=== PATIENT | female | born 1980 | race Caucasian/White ===

== ENCOUNTER 2016-12-06 04:00 | Inpatient (IN) | payer OTHER ==
[2016-12-06] MEDS ORDERED: DEXTROSE 5%-LACTATED RINGERS 500 ML IV ONE ×2 (05:00→06:00)
[2016-12-06] MEDS ORDERED: PROMETHAZINE HCL 25 MG/1 ML VIAL IVPUSH ONE (07:48)
[2016-12-06] MEDS ORDERED: BUTORPHANOL TARTRATE 1 MG/ML VIAL IVPB ONE (07:48)
[2016-12-06 08:28] VITALS: BMI 29.4
[2016-12-06 08:41] LABS: BASOPHIL 0.6 % (0-2.0); EOSINOPHIL 0.6 % (0-4.5); MCH 31.5 pg (25.7-33.7); MCHC 33.4 g/dl (32.0-36.0); MEAN CELL VOLUME 94.3 fl (80-96); MEAN PLT VOLUME 8.7 fl (7.5-11.1); NEUTROPHILS 75.1 % (42.8-82.8); PLATELET COUNT 275 K/MM3 (134-434); RDW 14.2 % (11.6-15.6); WHITE BLOOD COUNT 10.9 K/mm3 (4.0-10.0)
[2016-12-06] MEDS: FENTANYL/BUPIVACAINE/NS/PF - PCEA - 50 ML DISP.SYRIN EP SCH ×2 (08:50→23:41)
[2016-12-06 08:52] LABS: INR 0.97 (0.82-1.09); PROTHROMBIN TIME (PATIENT) 10.7 SEC (9.98-11.88)
[2016-12-06 08:55] LABS: ACTIVATED PTT 27.1 SECONDS (26.9-34.4); CALCIUM 9.2 mg/dL (8.5-10.1); CREATININE 0.6 mg/dL (0.55-1.02)
[2016-12-06] MEDS ORDERED: TUBERCULIN PPD 5 TU/0.1ML SYRINGE (IN PATIENT USE ONLY) ID ONE (09:00)
--- NOTE | 2016-12-06 09:47 | HP ---
Past Medical History - Admission Chief Complaint: Painful contractions sine 183 on 12/05/16 History of Present Illness: 36 y/o with SIUP at 40 weeks gestation presents today with painful contractions since 1829 last evening. Pt denies LOF/VB. +FM. EDC 12/06/16 by early ultrasound and IUI dating. conceived via IUI. complicated only maternal anxiety for which she was taking daily Xanax, states last dose was several weeks ago and mood has been stable. GBS negative, HIV negative. Low risk genetic screening (NIPS). History Source: Patient, Medical Record Limitations to Obtaining History: No Limitations - Past Medical History ORACLE ARCHITECT: No: Seizure, TIA, Vertigo Cardiovascular: No: AFIB, HTN, GA Pulmonary: No: Asthma, COPD Gastrointestinal: No: Ascites, Esophageal Varices, Gastritis, GERD Hepatobiliary: No: Cholelithiasis, Cholecystitis Renal/: No: Cancer, UTI Reproductive: Yes: Other (infertility - via IUI). No: Ectopic , Endometriosis, Fibroids, PID, Polycystic Ovary Syndrome ...: 5 ...Para: 0 ...Term: 0 ...: 0 ...Spon : 2 ...Induced : 2 ...Multiple Gestation: 0 ...LMP: 03/01/16 ... Weeks Gestation by Dates: 40 ...EDC by Dates: 12/06/16 Heme/Onc: No: Anemia, Bleeding Disorder, Sickle Cell Disease Infectious Disease: No: AIDS, HIV, MRSA Psych: Yes: Anxiety, Depression. No: Bipolar, Panic ENT: No: Allergic Rhinitis Endocrine: No: Diabetes Mellitus, Hyperthyroidism - Past Surgical History Hx Myomectomy: No Hx Transabdominal Cerclage: No Additional Surgical History: D&C, endometrial polypectomy - Smoking History Smoking history: Former smoker Have you smoked in the past 12 months: No Aproximately how many cigarettes per day: 10 - Alcohol/Substance Use Hx Alcohol Use: No - Social History Usual Living Arrangement: Yes: With Spouse ADL: Independent History of Recent Travel: No Home Medications - Allergies Allergies/Adverse Reactions: Allergies Allergy/AdvReac Type Severity Reaction Status Date / Time No Known Allergies Allergy Verified 12/06/16 05:51 - Home Medications Home Medications: Ambulatory Orders Alprazolam [Xanax] 0.5 mg PO PRN 12/06/16 Folic Acid 1 mg PO DAILY 12/06/16 Vit/Iron Fumarate/FA [ Tablet] 1 tab PO DAILY 12/06/16 Review of Systems - Review of Systems Constitutional: reports: No Symptoms Eyes: reports: No Symptoms HENT: reports: No Symptoms Neck: reports: No Symptoms Cardiovascular: reports: No Symptoms Respiratory: reports: No Symptoms Gastrointestinal: reports: No Symptoms Genitourinary: reports: No Symptoms Breasts: reports: No Symptoms Reported Musculoskeletal: reports: No Symptoms Integumentary: reports: No Symptoms Neurological: reports: No Symptoms Endocrine: reports: No Symptoms Hematology/Lymphatic: reports: No Symptoms Psychiatric: reports: No Symptoms Physical Exam - Maternity Vital Signs: Vital Signs Temperature 97.6 F 12/06/16 08:17 Pulse Rate 104 H 12/06/16 09:00 Respiratory Rate 20 12/06/16 09:00 Blood Pressure 130/84 12/06/16 09:00 O2 Sat by Pulse Oximetry (%) 98 12/06/16 09:00 Constitutional: Yes: Well Nourished, No Distress, Calm Eyes: Yes: Conjunctiva Clear, EOM Intact HENT: Yes: Atraumatic, Normocephalic Neck: Yes: Supple, Trachea Midline Cardiovascular: Yes: Regular Rate and Rhythm Lungs: Clear to auscultation - Abdominal Exam/OB Fundal Height: 40 Number of Fetuses: Single Presentation: Vertex Contractions: Yes Regularity: Regular Intensity: Mild/Mod Monitor Mode: External Heart Rate (range): 135 Category: I Accelerations: Uniform Decelerations: None - Vaginal Exam/OB Vaginal Bleediing: No Dilatation (cm): .35 Effacement (%): 80 Amniotic Membrane Status: Ruptured (AROM for clear fluid at this time) Presentation: Vertex/Position Station: -2 - Physical Exam Psychiatric: Yes: Alert, Oriented - Labs Lab Results: CBC, BMP 12/06/16 08:00 12/06/16 08:00 Hemorrhage Risk Assessment - Risk Factors Medium Risk Factors: Yes: None High Risk Factors: Yes: None Risk Score: 1 Risk Level: Medium Risk Problem List - Problems (1) Active labor at term Code(s): [id number] - (2) Anxiety Code(s): F41.9 - ANXIETY DISORDER, UNSPECIFIED Assessment/Plan 36 y/o with SIUP at 40.0 weeks gestation in labor, admitted to L&D - TS cat 1 - labor, admitted to L&D. Received epidural for pain control. AROM for clear fluid at this examination. Expectant management for now. Reasess in 2-3 hours , if no progress will augment with pitocin - GBS negative
[2016-12-06] MEDS: ELECTROLYTE-148 SOLN 500 ML IV SCH ×2 (10:00→16:00)
[2016-12-06] MEDS ORDERED: ELECTROLYTE-148 SOLN 500 ML IV ONE (14:45)
--- NOTE | 2016-12-06 19:42 | PN ---
Ante-Partal Exam - Subjective Subjective: pt comfortable with epidural feeling some pressure Vital Signs: Vital Signs Temperature 99.8 F H 12/06/16 19:00 Pulse Rate 84 12/06/16 19:05 Respiratory Rate 18 12/06/16 19:05 Blood Pressure 115/61 12/06/16 19:05 O2 Sat by Pulse Oximetry (%) 100 12/06/16 19:05 Bleeding: Yes Bleeding Description: Mild Headache: No Visual changes: No Right upper quadrant pain: No Pain (scale 1-10): 0 - Contractions Contractions: Yes Regularity: Regular Intensity: Mod/Strong Monitor Mode: External - Exam during Labor Heart Rate: 135 Category: I Monitor Accelerations: Present Monitor Decelerations: None Exam: Vaginal Dilatation (cm): 7 Effacement (%): 80 Amniotic Membrane Status: Ruptured Nitrazine Test: Positive Amniotic Fluid: Clear Presentation: Vertex Station: -1 - Intrapartum Hemorrhage Risk Medium Risk Factors: None High Risk Factors: None Risk Score: 0 Risk Level: Low Risk - Assessment/Plan Assessment/Plan: active labor fhts cat 1 continue to monitor gbs negative
--- NOTE | 2016-12-06 20:19 | PN ---
Ante-Partal Exam - Subjective Subjective: Pt doing well with epidural contractions Q2 Vital Signs: Vital Signs Temperature 99.8 F H 12/06/16 19:00 Pulse Rate 117 H 12/06/16 20:05 Respiratory Rate 20 12/06/16 20:05 Blood Pressure 134/78 12/06/16 20:05 O2 Sat by Pulse Oximetry (%) 100 12/06/16 20:05 Bleeding: No Headache: No Visual changes: No Right upper quadrant pain: No - Contractions Contractions: Yes Regularity: Regular Intensity: Moderate Monitor Mode: External - Exam during Labor Variability: Moderate Category: I Monitor Accelerations: Present Monitor Decelerations: None Exam: Vaginal Dilatation (cm): 8 Effacement (%): 80 Amniotic Membrane Status: Ruptured Amniotic Fluid: Clear Presentation: Vertex Station: -1 - Assessment/Plan Assessment/Plan: Active labor Cat 1 comfortable with epidural Plan Continue present management
--- NOTE | 2016-12-06 21:23 | PN ---
Progress Note (short form) - Note Progress Note: Called due to elevated temp Will draw labs blood cultures Start antibiotics Amp 2 gram urine culture EHR 160 Chorioamnionitis Cat 2 mod variability
[2016-12-06] MEDS ORDERED: ACETAMINOPHEN 1000 MG/100 ML VIAL (NON FORMULARY) IVPB ONE (21:26)
[2016-12-06] MEDS: AMPICILLIN - 2 GM in SODIUM CHLORIDE 100 ML IVPB SCH (21:32)
[2016-12-06 22:36] LABS: BASOPHIL 0.2 % (0-2.0); MCH 30.3 pg (25.7-33.7); MCHC 32.4 g/dl (32.0-36.0); MEAN CELL VOLUME 93.5 fl (80-96); MEAN PLT VOLUME 8.7 fl (7.5-11.1); NEUTROPHILS 88.9 % (42.8-82.8); PLATELET COUNT 278 K/MM3 (134-434); RDW 14.1 % (11.6-15.6); WHITE BLOOD COUNT 19.1 K/mm3 (4.0-10.0)
[2016-12-06 23:01] LABS: ALBUMIN 2.6 g/dl (3.4-5.0); ANION GAP 12 (8-16); BILIRUBIN,TOTAL 0.4 mg/dL (0.2-1.0); CALCIUM 7.8 mg/dL (8.5-10.1); CO2 21 mmol/L (21-32); CREATININE 0.6 mg/dL (0.55-1.02); GLUCOSE,RANDOM 91 mg/dL (74-106); SGOT/AST 16 U/L (15-37); SGPT/ALT 14 U/L (12-78); TOT PROT 5.6 g/dl (6.4-8.2)
[2016-12-06 23:02] LABS: ALK PHOS 143 U/L (45-117)
[2016-12-06 23:30] LABS: URINE APPEARANCE CLEAR; URINE BILIRUBIN NEGATIVE (NEGATIVE); URINE COLOR LTYELLOW; URINE GLUCOSE (UA) NEGATIVE (NEGATIVE); URINE KETONE TRACE (NEGATIVE); URINE LEUK ESTERASE NEGATIVE (NEGATIVE); URINE NITRITE NEGATIVE (NEGATIVE); URINE PROTEIN NEGATIVE (NEGATIVE); URINE UROBILINOGEN NEGATIVE E.U./dl (0.2-1.0)
[2016-12-06 23:34] LABS: URINE BLOOD 3+ (NEGATIVE)
[2016-12-06 23:36] LABS: CALCIUM OXALATE CRYSTALS RARE /hpf (NONE SEEN); URINE BACTERIA RARE /hpf (NONE SEEN); URINE MUCUS RARE; URINE RBC 48 /hpf (0-3); URINE WBC 7 /hpf (3-5)
--- NOTE | 2016-12-07 00:04 | PN ---
Ante-Partal Exam - Subjective Vital Signs: Vital Signs Temperature 99.2 F 12/06/16 23:00 Pulse Rate 93 H 12/06/16 23:35 Respiratory Rate 18 12/06/16 23:35 Blood Pressure 130/75 12/06/16 23:35 O2 Sat by Pulse Oximetry (%) 99 12/06/16 23:35 - Contractions Contractions: Yes Regularity: Regular Intensity: Moderate Monitor Mode: External - Exam during Labor Heart Rate: 165 Variability: Moderate Category: II Monitor Decelerations: None Exam: Vaginal Dilatation (cm): 9 Effacement (%): 90 Amniotic Membrane Status: Ruptured Presentation: Vertex Station: +1 - Intrapartum Hemorrhage Risk Medium Risk Factors: Chorioamniomitis Risk Score: 1 Risk Level: Medium Risk - Assessment/Plan Assessment/Plan: Cat2 active labor tachycardia Chorio/febrile abs started Epidural turned off pt is rim advised to alert when feels like pushing shoud be fully by that time continue Ampicillin wbc 19 urine culture done blood culture done
--- NOTE | 2016-12-07 01:13 | PN ---
Ante-Partal Exam - Subjective Subjective: Pt with c/o pain Vital Signs: Vital Signs Temperature 100.6 F H 12/07/16 01:00 Pulse Rate 99 H 12/07/16 00:35 Respiratory Rate 20 12/07/16 00:35 Blood Pressure 125/76 12/07/16 00:35 O2 Sat by Pulse Oximetry (%) 100 12/07/16 00:35 Bleeding: No Headache: No Visual changes: No Right upper quadrant pain: No - Contractions Contractions: Yes Regularity: Regular Intensity: Moderate Monitor Mode: External - Exam during Labor Heart Rate: 170 Variability: Moderate Category: II Monitor Accelerations: Present Monitor Decelerations: Late Exam: Vaginal Amniotic Membrane Status: Ruptured Presentation: Vertex Station: +1 - Intrapartum Hemorrhage Risk Medium Risk Factors: Chorioamniomitis Risk Score: 1 Risk Level: Medium Risk - Assessment/Plan Assessment/Plan: Failure to dilate Chorioamnionititis Cat 2 tracing Plan Primary Section
[2016-12-07] MEDS ORDERED: WITCH HAZEL 50% (TUCKS) 40 PAD/JAR PAD TP PRN (01:36)
[2016-12-07] MEDS ORDERED: METHYLERGONOVINE MALEATE 0.2 MG/1 ML AMP IM PRN (01:36)
[2016-12-07] MEDS ORDERED: diphenhydrAMINE HCL 25 MG CAPSULE (FP) PO PRN (01:36)
[2016-12-07] MEDS ORDERED: oxyCODONE HCL 5 MG TABLET PO PRN (01:36)
[2016-12-07] MEDS ORDERED: BENZOCAINE 20% 57 GM BOTTLE TP PRN (01:36)
[2016-12-07] MEDS ORDERED: ACETAMINOPHEN 325 MG TABLET (FP) PO PRN (01:36)
[2016-12-07] MEDS ORDERED: BENZOCAINE 28 GM HEMORRHOIDAL OINTMENT PR PRN (01:36)
[2016-12-07] MEDS ORDERED: morphine SULFATE/Preservative Free 0.5 MG/ML (1cc Syringe) EP ONE (03:06)
[2016-12-07] MEDS ORDERED: ONDANSETRON 4 MG/2 ML VIAL IVPB PRN (03:06)
[2016-12-07] MEDS: AMPICILLIN - 2 GM in SODIUM CHLORIDE 100 ML IVPB SCH (04:00)
[2016-12-07 04:03] LABS: ARTERIAL BLOOD GAS HCO3 22.2 meq/L (22-26)
[2016-12-07 04:04] LABS: LPM/O2% 21%; PT. ON O2? no; TYPE OF O2 room air
[2016-12-07 04:05] LABS: ARTERIAL BLD GAS O2 SATURATION 40.6 % (90-98.9); ARTERIAL BLOOD GAS PO2 21.1 mmHg (80-100)
[2016-12-07] MEDS: D5W-LR W/ 20 UNITS OXYTOCIN 1,000 ML IV SCH (04:20)
[2016-12-07] MEDS: IBUPROFEN 800 MG/8 ML IJ IVPB PRN ×2 (05:44→17:18)
--- NOTE | 2016-12-07 08:21 | OP ---
Operative Note - Note: Operative Date: 12/07/16 Pre-Operative Diagnosis: Failure to dilate. Tachycardia. Nonreassuring tracing Operation: Primary Section Findings: Live female nuchal cord x 1 Post-Operative Diagnosis: Same as Pre-op (Meconium thick) Surgeon: Dianna Jaquez Mutual Fund Manager: Amrit Yung Anesthesiologist/SEWER SEPARATION DESIGNER: Robert Louise Anesthesia: Epidural Specimens Removed: placenta Estimated Blood Loss (mls): 700 Operative Report Dictated: Yes
--- NOTE | 2016-12-07 09:33 | OP ---
DATE OF OPERATION: 12/07/2016 PREOPERATIVE DIAGNOSIS: Failure to dilate, failed tachycardia, and non- reassuring tracing. OPERATION: Primary low transverse section. POSTOPERATIVE DIAGNOSIS: Failure to dilate, failed tachycardia, and non- reassuring tracing. Live female , nuchal cord x1, and thick meconium. SURGEON: Dianna Jaquez MD MEDICAL TECHNOLOGIST BLOOD BANK: Amrit Yung MD ANESTHESIOLOGIST: ANESTHESIA: Epidural. PROCEDURE: Patient was taken to the operating room, placed in supine position, prepped and draped in the usual sterile fashion. A Pfannenstiel skin incision was made with the scalpel. Cautery was then used to go through the layers of the abdominal wall to the level of the fascia. Fascia was cut in the midline, and cautery was then used to open the fascia in smiling fashion. Irving was then used to bluntly and sharply dissect the rectus muscle off the fascia. The muscle was split in the midline. Peritoneal cavity was then entered and carried up and downwards. Bladder retractor was then placed. Vesicouterine reflection was then entered. Bladder was bluntly dissected out of the operative field. A low transverse uterine incision was made with the scalpel. Incisions were then used to open the uterus in a smiling fashion. Kochers were then used to bluntly shuck. A live female was delivered in OT position. Nuchal cord x1 was reduced. Shoulders were delivered without difficulty. Suction was performed at the table. The cord was clamped and cut, and the was handed to the migratory game bird biologist. Thick meconium was noted upon delivery. Placenta was manually extracted from the uterus. The uterus was exteriorized and cleaned with clean lap pads. Uterine incision was then closed using 0 Biosyn suture, first layer with continuous interlocking and second layer imbricating the first layer. Hemostasis was achieved. The tubes and ovaries were normal. Uterus interiorized. Abdominal cavity was cleaned with clean lap pads. Peritoneal sweep done. Peritoneum closed using 0 Biosyn suture. Fascia was closed using 0 Vicryl suture in 2 parts. Subcutaneous was closed using 0 Biosyn suture using interrupted sutures, and skin was then closed using 3-0 Vicryl in subcuticular fashion. Wounds washed and dressed. Patient tolerated the procedure well. Steri-Strips placed. Estimated blood loss was 700 mL. Wound classification clean-contaminated. Patient tolerated the procedure well and was taken to recovery room in stable condition. Rianna [id number] MTDDejuan
[2016-12-07] MEDS: CEFAZOLIN 1 GM/D5W 50 ML IVPB SCH ×2 (10:50→18:55)
--- NOTE | 2016-12-07 12:31 | PN ---
Progress Note, Physician Chief Complaint: Pt. pain controlled, no MCCOLLUM, not gotten out of bed and still has goodrich catheter. - Current Medication List Current Medications: Active Medications Acetaminophen (Tylenol -) 650 mg PO Q4H PRN PRN Reason: FEVER OR PAIN Benzocaine (Americaine Ointment -) 1 applic [place] PRN PRN PRN Reason: PAIN Benzocaine (Americaine 20% [place] -) 1 spray TP PRN PRN PRN Reason: PAIN Bisacodyl (Dulcolax Suppository -) 10 mg RC PRN PRN PRN Reason: CONSTIPATION Diphenhydramine HCl (Benadryl -) 25 mg PO Q6H PRN PRN Reason: FOR ITCHING Diphenhydramine HCl (Benadryl Injection -) 25 mg IVPUSH Q4H PRN PRN Reason: Pruritis Diphtheria/Tetanus/Acell Pertussis (Boostrix -) 0.5 ml IM .ONCE ONE Stop: 12/08/16 10:01 Hydromorphone HCl (Dilaudid -) 4 mg PO Q4H PRN PRN Reason: PAIN Stop: 12/08/16 01:35 Dextrose/Lactated Ringer's (Pitocin 20 Units In D5-Lr -) 1,000 mls @ 125 mls/ hr IV ASDIR LANI Last Admin: 12/07/16 04:20 Dose: 125 mls/hr Cefazolin Sodium (Ancef 1 Gm Premixed Ivpb -) 50 mls @ 100 mls/hr IVPB Q8H-IV LANI Stop: 12/08/16 09:59 Last Admin: 12/07/16 10:50 Dose: 100 mls/hr Ibuprofen (Motrin -) 600 mg PO Q4H PRN PRN Reason: PAIN Ibuprofen (Caldolor Injection -) 800 mg IVPB Q6H PRN PRN Reason: FEVER Stop: 12/07/16 19:37 Last Admin: 12/07/16 05:44 Dose: 800 mg Influenza Virus Vaccine (Fluvirin) 45 mcg IM .ONCE ONE Stop: 12/08/16 10:01 Methylergonovine Maleate (Methergine Injection -) 0.2 mg IM Q4H PRN PRN Reason: EXCESSIVE BLEEDING Oxycodone HCl (Roxicodone -) 5 mg PO Q4H PRN PRN Reason: PAIN LEVEL 1-5 Oxycodone HCl (Roxicodone -) 10 mg PO Q4H PRN PRN Reason: PAIN LEVEL 6-10 Senna/Docusate Sodium (Pericolace -) 2 tablet PO HS PRN PRN Reason: CONSTIPATION Simethicone (Mylicon -) 80 mg PO Q4H PRN PRN Reason: GAS Witch [place]/Glycerin (Tucks Pads -) 1 pad TP PRN PRN PRN Reason: PAIN - Objective Vital Signs: Vital Signs Temperature 98.7 F 12/07/16 09:59 Pulse Rate 92 H 12/07/16 09:59 Respiratory Rate 18 12/07/16 11:00 Blood Pressure 103/60 12/07/16 09:59 O2 Sat by Pulse Oximetry (%) 100 12/07/16 03:45 Constitutional: Yes: Well Nourished, No Distress, Calm Musculoskeletal: Yes: WNL Neurological: Yes: WNL, Alert, Oriented ...Motor Strength: WNL Labs: CBC, BMP 12/06/16 22:00 12/06/16 22:00 INR, PTT INR 0.97 (0.82-1.09) 12/06/16 08:00 Assessment/Plan POD#1 s/p . Doing well. D/C from anesthesia care after she ambulates and voids.
[2016-12-07] MEDS: SENNOSIDES/DOCUSATE COMBO (SENNA PLUS) TABLET (UD) PO PRN (21:52)
[2016-12-08] MEDS: CEFAZOLIN 1 GM/D5W 50 ML IVPB SCH (01:30)
[2016-12-08] MEDS ORDERED: BISACODYL 10 MG SUPP.RECT RC PRN (01:37)
[2016-12-08] MEDS: IBUPROFEN 600 MG TABLET (FP) PO PRN ×5 (04:23→21:50)
[2016-12-08] MEDS: oxyCODONE HCL 5 MG TABLET PO PRN ×5 (04:23→21:52)
[2016-12-08] MEDS: SIMETHICONE 80 MG TAB.CHEW (FP) PO PRN ×5 (04:23→21:50)
--- NOTE | 2016-12-08 08:49 | PN ---
Progress Note, Physician Chief Complaint: s/p section condition is stable History of Present Illness: patient is ammbulating well c/o gas pain - Current Medication List Current Medications: Active Medications Acetaminophen (Tylenol -) 650 mg PO Q4H PRN PRN Reason: FEVER OR PAIN Benzocaine (Americaine Ointment -) 1 applic [place] PRN PRN PRN Reason: PAIN Benzocaine (Americaine 20% [place] -) 1 spray TP PRN PRN PRN Reason: PAIN Bisacodyl (Dulcolax Suppository -) 10 mg RC PRN PRN PRN Reason: CONSTIPATION Diphenhydramine HCl (Benadryl -) 25 mg PO Q6H PRN PRN Reason: FOR ITCHING Diphenhydramine HCl (Benadryl Injection -) 25 mg IVPUSH Q4H PRN PRN Reason: Pruritis Diphtheria/Tetanus/Acell Pertussis (Boostrix -) 0.5 ml IM .ONCE ONE Stop: 12/08/16 10:01 Dextrose/Lactated Ringer's (Pitocin 20 Units In D5-Lr -) 1,000 mls @ 125 mls/ hr IV ASDIR LANI Last Admin: 12/07/16 04:20 Dose: 125 mls/hr Cefazolin Sodium (Ancef 1 Gm Premixed Ivpb -) 50 mls @ 100 mls/hr IVPB Q8H-IV LANI Stop: 12/08/16 09:59 Last Admin: 12/08/16 01:30 Dose: 100 mls/hr Ibuprofen (Motrin -) 600 mg PO Q4H PRN PRN Reason: PAIN Last Admin: 12/08/16 04:23 Dose: 600 mg Influenza Virus Vaccine (Fluvirin) 45 mcg IM .ONCE ONE Stop: 12/08/16 10:01 Methylergonovine Maleate (Methergine Injection -) 0.2 mg IM Q4H PRN PRN Reason: EXCESSIVE BLEEDING Oxycodone HCl (Roxicodone -) 5 mg PO Q4H PRN PRN Reason: PAIN LEVEL 1-5 Last Admin: 12/08/16 04:23 Dose: 5 mg Oxycodone HCl (Roxicodone -) 10 mg PO Q4H PRN PRN Reason: PAIN LEVEL 6-10 Senna/Docusate Sodium (Pericolace -) 2 tablet PO HS PRN PRN Reason: CONSTIPATION Last Admin: 12/07/16 21:52 Dose: 2 tablet Simethicone (Mylicon -) 80 mg PO Q4H PRN PRN Reason: GAS Last Admin: 12/08/16 04:23 Dose: 80 mg Witch [place]/Glycerin (Tucks Pads -) 1 pad TP PRN PRN PRN Reason: PAIN - Objective Vital Signs: Vital Signs Temperature 97.7 F 12/08/16 06:00 Pulse Rate 81 12/08/16 01:31 Respiratory Rate 20 12/08/16 01:58 Blood Pressure 108/58 12/08/16 01:31 O2 Sat by Pulse Oximetry (%) 100 12/07/16 03:45 Constitutional: Yes: Well Nourished, No Distress, Calm Eyes: Yes: WNL, Conjunctiva Clear HENT: Yes: WNL, Atraumatic, Normocephalic Neck: Yes: WNL, Supple Cardiovascular: Yes: WNL, Regular Rate and Rhythm Respiratory: Yes: WNL, Regular Gastrointestinal: Yes: WNL, Normal Bowel Sounds ...Rectal Exam: Yes: WNL, Deferred Genitourinary: Yes: WNL Breast(s): Yes: WNL Edema: No Peripheral Pulses WNL: Yes Integumentary: Yes: WNL Wound/Incision: Yes: Clean/Dry Neurological: Yes: Alert, Oriented ...Motor Strength: WNL Psychiatric: Yes: WNL Labs: CBC, BMP 12/06/16 22:00 12/06/16 22:00 INR, PTT INR 0.97 (0.82-1.09) 12/06/16 08:00 Assessment/Plan condition is stable continue cirrent care
[2016-12-08 09:55] LABS: MCH 31.6 pg (25.7-33.7); MCHC 33.2 g/dl (32.0-36.0); MEAN CELL VOLUME 95.4 fl (80-96); MEAN PLT VOLUME 8.1 fl (7.5-11.1); PLATELET COUNT 242 K/MM3 (134-434); RDW 14.8 % (11.6-15.6); WHITE BLOOD COUNT 20.3 K/mm3 (4.0-10.0)
[2016-12-08] MEDS ORDERED: INFLUENZA VACCINE 45 MCG/0.5 ML (MDV 16-17) IM ONE (10:00)
[2016-12-08] MEDS ORDERED: DIPHTH,PERTUSS(ACELL),TET 0.5 ML DISP.SYRIN IM ONE (11:30)
[2016-12-08] MEDS ORDERED: VACCINE 60 MCG/0.5 ML (P/F DISP.SYRIN 16-17) IM ONE (11:30)
[2016-12-08] MEDS: CEPHALEXIN MONOHYDRATE 500 MG CAPSULE (UD) PO SCH ×2 (12:28→21:50)
[2016-12-08] MEDS: SENNOSIDES/DOCUSATE COMBO (SENNA PLUS) TABLET (UD) PO PRN (21:50)
[2016-12-09] MEDS: IBUPROFEN 600 MG TABLET (FP) PO PRN ×5 (02:00→21:35)
[2016-12-09] MEDS: SIMETHICONE 80 MG TAB.CHEW (FP) PO PRN ×5 (02:00→21:35)
[2016-12-09] MEDS: oxyCODONE HCL 5 MG TABLET PO PRN ×5 (02:01→21:35)
--- NOTE | 2016-12-09 07:12 | PN ---
Post Progress Note - Subjective Subjective: Pt seen/evaluated and doing well. Pain controlled. PT OOB ambulating without difficulty. Tolerating regular diet. VB minimal. No dizziness when ambulating. Denies CP/SOB/F/C/MCCOLLUM. No other complaints. Type of Delivery: Primary C/S Vital Signs: Vital Signs Temperature 97.7 F 12/09/16 05:52 Pulse Rate 88 12/08/16 21:46 Respiratory Rate 20 12/08/16 21:46 Blood Pressure 127/75 12/08/16 21:46 O2 Sat by Pulse Oximetry (%) 100 12/07/16 03:45 Uterus: Yes: Fundus Firm, Fundus below umbilicus Incision: Yes: Sutures intact. No: Redness, Oozing Abdomen/GI: Yes: Abdomen soft, Passing flatus, Tolerating PO. No: Abdominal Distention, Tender Lochia: Yes: Rubra Lochia, amount: Small Extremities: Yes: Calves non-tender. No: Edema Perineum: Yes: Intact Activity: Ambulating - Labs Labs: CBC WBC 20.3 K/mm3 (4.0-10.0) H 12/08/16 09:00 RBC 3.74 M/mm3 (3.60-5.2) 12/08/16 09:00 Hgb 11.8 GM/dL (10.7-15.3) 12/08/16 09:00 Hct 35.7 % (32.4-45.2) 12/08/16 09:00 MCV 95.4 fl (80-96) 12/08/16 09:00 MCHC 33.2 g/dl (32.0-36.0) 12/08/16 09:00 RDW 14.8 % (11.6-15.6) 12/08/16 09:00 Plt Count 242 K/MM3 (134-434) 12/08/16 09:00 MPV 8.1 fl (7.5-11.1) 12/08/16 09:00 Neutrophils % 88.9 % (42.8-82.8) H 12/06/16 22:00 Lymphocytes % 4.5 % (8-40) L D 12/06/16 22:00 Monocytes % 6.4 % (3.8-10.2) 12/06/16 22:00 Eosinophils % 0.0 % (0-4.5) D 12/06/16 22:00 Basophils % 0.2 % (0-2.0) 12/06/16 22:00 Problem List - Problems (1) Active labor at term Code(s): [id number] - (2) Anxiety Code(s): F41.9 - ANXIETY DISORDER, UNSPECIFIED (3) delivery delivered Code(s): O82 - ENCOUNTER FOR DELIVERY WITHOUT INDICATION Assessment/Plan 36 y/o post day/post op day 2 from primary section for failure to dilate and chorioamnionitis - AFVSS - Hgb 11.8 post op - urinalysis with gram neg. bacilli noted - started on PO antibiotics yesterday , pt asymptomatic - regular diet, PO pain meds - h/o anxiety - stable, not currently on meds - routine care, plan for discharge home on 12/10 or 12/11
[2016-12-09] MEDS: CEPHALEXIN MONOHYDRATE 500 MG CAPSULE (UD) PO SCH ×2 (10:20→21:35)
[2016-12-09] MEDS: D5W-LR W/ 20 UNITS OXYTOCIN 1,000 ML IV SCH (11:43)
[2016-12-09] MEDS: SENNOSIDES/DOCUSATE COMBO (SENNA PLUS) TABLET (UD) PO PRN (21:36)
[2016-12-10] MEDS ORDERED: oxyCODONE HCL 5 MG TABLET ONE (01:50)
[2016-12-10] MEDS: oxyCODONE HCL 5 MG TABLET PO PRN ×3 (01:52→12:47)
[2016-12-10] MEDS: SIMETHICONE 80 MG TAB.CHEW (FP) PO PRN ×3 (01:52→12:46)
[2016-12-10] MEDS: IBUPROFEN 600 MG TABLET (FP) PO PRN ×3 (01:53→12:46)
[2016-12-10 06:04] LABS: MCH 31.2 pg (25.7-33.7); MCHC 33.1 g/dl (32.0-36.0); MEAN CELL VOLUME 94.4 fl (80-96); PLATELET COUNT 328 K/MM3 (134-434); RDW 14.5 % (11.6-15.6); WHITE BLOOD COUNT 9.7 K/mm3 (4.0-10.0)
[2016-12-10 07:49] VITALS: BP 123/74; PULSE 72; TEMP 98.3
--- NOTE | 2016-12-10 08:54 | PN ---
Post Progress Note - Subjective Subjective: Pt seen/evaluated and doing well. Pain controlled, tolerating diet. Ambulating , voiding, passing flatus. VB minimal. Denies CP/SOB/F/C/MCCOLLUM or any other complaints. Type of Delivery: Primary C/S Vital Signs: Vital Signs Temperature 98.3 F 12/10/16 07:47 Pulse Rate 72 12/10/16 07:47 Respiratory Rate 20 12/10/16 07:47 Blood Pressure 123/74 12/10/16 07:47 O2 Sat by Pulse Oximetry (%) 100 12/07/16 03:45 Uterus: Yes: Fundus Firm, Fundus below umbilicus Incision: Yes: Sutures intact Abdomen/GI: Yes: Abdomen soft, Passing flatus, Tolerating PO. No: Abdominal Distention, Tender Lochia, amount: Small Extremities: Yes: Calves non-tender, Edema (trace LE edema b/l, nonpitting) Perineum: Yes: Intact Activity: Ambulating - Labs Labs: CBC WBC 9.7 K/mm3 (4.0-10.0) D 12/10/16 05:35 RBC 3.35 M/mm3 (3.60-5.2) L 12/10/16 05:35 Hgb 10.5 GM/dL (10.7-15.3) L D 12/10/16 05:35 Hct 31.7 % (32.4-45.2) L 12/10/16 05:35 MCV 94.4 fl (80-96) 12/10/16 05:35 MCHC 33.1 g/dl (32.0-36.0) 12/10/16 05:35 RDW 14.5 % (11.6-15.6) 12/10/16 05:35 Plt Count 328 K/MM3 (134-434) D 12/10/16 05:35 MPV 8.0 fl (7.5-11.1) 12/10/16 05:35 Neutrophils % 88.9 % (42.8-82.8) H 12/06/16 22:00 Lymphocytes % 4.5 % (8-40) L D 12/06/16 22:00 Monocytes % 6.4 % (3.8-10.2) 12/06/16 22:00 Eosinophils % 0.0 % (0-4.5) D 12/06/16 22:00 Basophils % 0.2 % (0-2.0) 12/06/16 22:00 Problem List - Problems (1) Active labor at term Code(s): KGM9763 - (2) Anxiety Code(s): F41.9 - ANXIETY DISORDER, UNSPECIFIED (3) delivery delivered Code(s): O82 - ENCOUNTER FOR DELIVERY WITHOUT INDICATION Assessment/Plan 36 y/o post day/post op day 3 from primary section for failure to dilate and chorioamnionitis - AFVSS - Hgb 11.8 post op - urine culture with E. Coli noted - patient on PO antibiotics - regular diet, PO pain meds - h/o anxiety - stable, not currently on meds - routine care
[2016-12-10] MEDS: CEPHALEXIN MONOHYDRATE 500 MG CAPSULE (UD) PO SCH (09:51)
--- NOTE | 2016-12-10 10:27 | DS ---
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: Vital Signs Temperature 98.3 F 12/10/16 07:47 Pulse Rate 72 12/10/16 07:47 Respiratory Rate 20 12/10/16 07:47 Blood Pressure 123/74 12/10/16 07:47 O2 Sat by Pulse Oximetry (%) 100 12/07/16 03:45 Constitutional: Yes: Well Nourished, No Distress, Calm Eyes: Yes: Conjunctiva Clear, EOM Intact HENT: Yes: Atraumatic, Normocephalic Neck: Yes: Supple, Trachea Midline Cardiovascular: Yes: Regular Rate and Rhythm Respiratory: Yes: Regular, CTA Bilaterally Gastrointestinal: Yes: Normal Bowel Sounds, Soft ....Post : Yes: Uterus firm, Uterus non-tender Breast(s): Yes: WNL Musculoskeletal: Yes: WNL Extremities: Yes: WNL Wound/Incision: Yes: Clean/Dry, Well Approximated Neurological: Yes: Alert, Oriented Psychiatric: Yes: Alert, Oriented Labs: CBC, BMP 12/10/16 05:35 12/06/16 22:00 Delivery - Delivery Section: Primary Type of Anesthesia: Epidural Episiotomy/Laceration: None EBL (cc): 700 Delivery, Single - Stages of Labor Date 1st Stage Initiatied: 12/06/16 Time 1st Stage Initiated: 02:00 Date of Delivery: 12/07/16 Time of Delivery: 01:57 Time Placenta Delivered: 01:59 - Condition of Infant 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 Name: Randy Reveles Infant Gender: Female Weight: 7 lb 14 oz Position: Right, OT Total Hours ROM (Hrs/Mins): 16 hours 32 minutes - 1 Minute Total Score: 9 5 Minutes Total Score: 9 - Feeding Plan Initial Plan: Exclusive throughout hospitalization Discharge Summary Reason For Visit: LABOR Current Active Problems Active labor at term (Acute) Anxiety (Acute) delivery delivered (Acute) Procedures: Principal: primary section Hospital Course: Patient admitted on 12/06/15 in labor and after several hours of labor, failure to dilate and being diagonsed with chorioamnionitis, 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 The patient had a positive E coli culture form the goodrich catheter and was started on PO antibiotics, otherwise had a normal uncomplicated post op/post recovery. The patient was then discharged home in stable condition on 12/10/16. Condition: Good - Instructions Diet, Activity, Other Instructions: Physical activity Resume your normal everyday activity as tolerated no heavy lifting or exercise until seen by your surgeon. You may walk unlimited amounts and climb stairs. You may resume driving the car when you feel safe and comfortable behind the wheel. No sexual activity as instructed. Wound care If there are tapes on the skin leave them in place. They will peel off in the next 7 to 10 days. Do Not Peel them off. You may shower the day after surgery. If there are tapes present on the skin, you may shower over them. Diet There are no dietary restrictions. Eat healthy, high-fiber foods. Drink 6 to 8 glasses of liquid each day. This will assist in keeping your bowels regular. Pain management You may take Tylenol over the counter for mild pain. You can take the prescription strength Motrin every 6 hours. If you have any narcotic pain prescriptions sent to your pharmacy, you can take them as prescribed for severe pain. Call MD for any of the following: Severe pain not relieved by medication Fever of 101 or higher Excessive bleeding or drainage on dressing Inability to urinate Referrals: Paulette Prince DO [Staff Physician] - 1 Week Disposition: HOME - Home Medications Comprehensive Discharge Medication List: Ambulatory Orders Alprazolam [Xanax] 0.5 mg PO PRN 12/06/16 Folic Acid 1 mg PO DAILY 12/06/16 Vit/Iron Fumarate/FA [ Tablet] 1 tab PO DAILY 12/06/16 Cephalexin Monohydrate [Keflex -] 500 mg PO BID #10 capsule MDD 2 12/10/16 Ibuprofen [Motrin -] 600 mg PO QID PRN #28 tablet 12/10/16 Oxycodone HCl/Acetaminophen [Percocet 5-325 mg Tablet -] 1 tab PO Q4H #30 tablet MDD 6 12/10/16 Simethicone [Gas-X] 80 mg PO BID PRN #10 tab.chew MDD 2 12/10/16
--- NOTE | 2016-12-11 12:39 | PATH ---
Surgical Pathology Report Patient Name: DESTINY WEBER Med. Rec. 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 Specimen(s) Received PLACENTA Clinical History 2IAB, 2SPAB IUI , AMA, history of anxiety Uterine polyp removed 2014 Failure to dilate, maternal temperature, tachycardia Final Diagnosis PLACENTA, DELIVERY: FOCALLY DISRUPTED THIRD TRIMESTER PLACENTA WITH ACUTE CHORIOAMNIONITIS AND 3 VESSEL UMBILICAL CORD. Electronically Signed Kee Burkett M.D. Gross Description The specimen is received fresh labeled placenta and is a 551 gram, 20.0 x 18.5 x 2.8 cm. placenta with attached membranes and umbilical cord. The attached membranes are solo, translucent with focal opacities and insert marginally. The umbilical cord measures 21.5 cm. in length and averages 1.2 cm. in diameter. The cord inserts eccentrically, 4 cm. to the nearest margin. No true knots or strictures are identified. Cut surface of the umbilical cord reveals 3 vessels. The surface is doshi-blue with minimal fibrin deposition and appropriate caliber vessels. The maternal surface is red-brown with focal defects. Sectioning reveals red-brown, spongy parenchyma. No lesions are identified. Trimming Machine Operator sections are submitted in three cassettes as follows: 1- membrane rolls and umbilical cord; 2-3- full thickness sections of placenta. /12/10/[address] [facility]12/10/2016
== END 2016-12-10 14:00 | disposition home or self-care (01) | DRG 765 ==
LOC: JDEL 04:00 → JLDR 07:35 → J3W 12-07 04:30
PROVIDERS: ADMIT Obstetrics & Gynecology; ATTEND Obstetrics & Gynecology
PROC: 10D00Z1 Extraction of Products of Conception, Low, Open Approach (ICD-10-PCS; principal; 2016-12-07)
DX: O76 Abnormality in fetal heart rate and rhythm complicating labor and delivery (principal); O41.1230 Chorioamnionitis, third trimester, not applicable or unspecified; O99.344 Other mental disorders complicating childbirth; F41.9 Anxiety disorder, unspecified; O09.513 Supervision of elderly primigravida, third trimester; O62.0 Primary inadequate contractions; O69.81X0 Labor and delivery complicated by cord around neck, without compression, not applicable or unspecified; Z3A.40 40 weeks gestation of pregnancy; Z37.0 Single live birth
CPT/HCPCS: 36415; 36600; 80048; 80053; 81003; 81015; 82803; 85025; 85027; 85610; 85730; 86593; 86850; 86900; 86901; 87040; 87086; 87186; 88307-TC; 90715

== ENCOUNTER 2021-06-19 02:57 | Emergency (ER) | payer OTHER ==
[2021-06-19 03:16] VITALS: BP 115/79; PULSE 109; TEMP 98; BMI 24.1
[2021-06-19] MEDS ORDERED: ACETAMINOPHEN 500 MG TABLET (FP) PO ONE (04:22)
[2021-06-19] MEDS ORDERED: ACETAMINOPHEN 325 MG TABLET (FP) ONE (04:48)
== END 2021-06-19 06:13 | disposition home or self-care (01) ==
LOC: JER 02:57
DX: S93.401A Sprain of unspecified ligament of right ankle, initial encounter (principal)
CPT/HCPCS: 73610-TC-RT-FY; 73630-TC-RT-FY; 99284-25

== ENCOUNTER 2022-10-10 00:04 | Emergency (ER) | payer OTHER ==
[2022-10-10 00:48] VITALS: BP 117/67; PULSE 126; RESP 17; TEMP 98.2; BMI 28.1
[2022-10-10] MEDS ORDERED: DOXYCYCLINE HYCLATE 100 MG CAPSULE PO ONE ×2 (00:53→01:28)
== END 2022-10-10 01:57 | disposition home or self-care (01) ==
LOC: JER 00:04
DX: L03.115 Cellulitis of right lower limb (principal)
CPT/HCPCS: 93971-TC; 99284-25

== ENCOUNTER 2024-05-13 12:16 | Observation (INO) | payer OTHER ==
[2024-05-13 12:29] VITALS: BMI 28.5
[2024-05-13] MEDS ORDERED: ALPRAZolam 0.25 MG TABLET ONE (13:48)
[2024-05-13] MEDS ORDERED: PANTOPRAZOLE SODIUM 40 MG VIAL ONE (13:49)
[2024-05-13] MEDS: ALPRAZolam 0.25 MG TABLET PO ONE (14:10)
[2024-05-13] MEDS: PANTOPRAZOLE SODIUM 40 MG VIAL IVPUSH ONE (14:10)
[2024-05-13] MEDS: SODIUM CHLORIDE 1,000 ML IV STA (14:10)
[2024-05-13 14:14] LABS: EOS % 0.8 % (0-4.5); HEMATOCRIT 39.5 % (32.4-45.2); HEMOGLOBIN 13.4 GM/dL (10.7-15.3); LYMPH % 17.1 % (8-40); MCH 31.8 pg (25.7-33.7); MEAN CELL VOLUME 93.7 fl (80-96); MEAN PLT VOLUME 6.9 fl (7.5-11.1); MONO % 7.2 % (3.8-10.2); NEUT % 73.9 % (42.8-82.8); PLATELET COUNT 448 10^3/uL (134-434); RBC 4.22 M/mm3 (3.60-5.2); RDW 15.9 % (11.6-15.6); WHITE BLOOD COUNT 8.5 K/mm3 (4.0-10.0)
[2024-05-13 14:17] LABS: EPI CELLS >36 /uL (0-25.1); HYALINE CASTS 6 /uL (0-3.1); PH,URINE 5.5 (5.0-8.0); URINE APPEARANCE CLOUDY; URINE BACTERIA 2214 /uL (0-1359); URINE BILIRUBIN NEGATIVE (NEGATIVE); URINE COLOR YELLOW; URINE GLUCOSE (UA) NEGATIVE (NEGATIVE); URINE KETONE 2+ (NEGATIVE); URINE LEUK ESTERASE NEGATIVE (NEGATIVE); URINE NITRITE NEGATIVE (NEGATIVE); URINE PROTEIN 1+ (NEGATIVE); URINE RBC 22 /uL (0-23.9); URINE UROBILINOGEN 0.2 mg/dL (0.2-1.0); URINE WBC 33 /uL (0-25.8)
[2024-05-13 14:33] LABS: CHLORIDE 103 mmol/L (98-107); POTASSIUM 4.4 mmol/L (3.5-5.1); SODIUM 134 mmol/L (136-145)
[2024-05-13 14:36] LABS: ALBUMIN 4.2 g/dl (3.4-5.0); ANION GAP 8 mmol/L (4-13); BLOOD UREA NITROGEN 8.5 mg/dL (7-18); CALCIUM 9.1 mg/dL (8.5-10.1); CO2 24 mmol/L (21-32); GLUCOSE,RANDOM 117 mg/dL (74-106)
[2024-05-13 14:39] LABS: CREATININE 0.8 mg/dL (0.55-1.3); SGOT/AST 30 U/L (15-37); SGPT/ALT 28 U/L (13-61)
[2024-05-13 14:41] LABS: BILIRUBIN,TOTAL 0.9 mg/dL (0.2-1); TOT PROT 7.7 g/dl (6.4-8.2)
[2024-05-13 14:42] LABS: ALK PHOS 93 U/L (45-117)
[2024-05-13 14:54] LABS: ERYTHROCYTE SEDIMENTATION RATE 4 mm/hr (0-20)
[2024-05-13 15:22] LABS: YEAST NONE SEEN (NEGATIVE)
[2024-05-13] MEDS ORDERED: ONDANSETRON 4 MG/2 ML VIAL ONE (18:54)
[2024-05-13] MEDS: LACTATED RINGERS SOLUTION 1000 ML INFUS.BAG IV ONE (19:01)
[2024-05-13] MEDS: ONDANSETRON 4 MG/2 ML VIAL IVPUSH ONE (19:01)
[2024-05-13] MEDS ORDERED: ALPRAZolam 1 MG TABLET PO PRN (22:10)
[2024-05-13] MEDS: SODIUM CHLORIDE 1,000 ML IV SCH (23:31)
[2024-05-13] MEDS: ALPRAZolam 1 MG TABLET PO ONE (23:31)
[2024-05-14] MEDS: ALPRAZolam 1 MG TABLET PO SCH ×2 (05:20→10:29)
[2024-05-14 07:50] LABS: HEMATOCRIT 34.3 % (32.4-45.2); HEMOGLOBIN 11.6 GM/dL (10.7-15.3); MCHC 33.9 g/dl (32.0-36.0); MEAN CELL VOLUME 94.5 fl (80-96); PLATELET COUNT 375 10^3/uL (134-434); RBC 3.63 M/mm3 (3.60-5.2); RDW 15.9 % (11.6-15.6); WHITE BLOOD COUNT 6.9 K/mm3 (4.0-10.0)
[2024-05-14 07:59] LABS: POTASSIUM 3.4 mmol/L (3.5-5.1)
[2024-05-14 08:08] LABS: CALCIUM 8.6 mg/dL (8.5-10.1)
[2024-05-14 08:09] LABS: MAGNESIUM 2.2 mg/dL (1.8-2.4)
[2024-05-14 08:10] LABS: BLOOD UREA NITROGEN 4.4 mg/dL (7-18)
[2024-05-14 08:12] LABS: CREATININE 0.6 mg/dL (0.55-1.3); PHOSPHOROUS 3.2 mg/dL (2.5-4.9)
[2024-05-14 08:14] LABS: BILIRUBIN,TOTAL 0.5 mg/dL (0.2-1); TOT PROT 5.9 g/dl (6.4-8.2)
[2024-05-14 08:17] LABS: ALBUMIN 3.3 g/dl (3.4-5.0)
[2024-05-14] MEDS ORDERED: FENTANYL CITRATE/PF 50 MCG/ML VIAL ONE (09:13)
[2024-05-14] MEDS ORDERED: PATIENT'S OWN MEDICATION (NON-FORMULARY) (Dextroamphetamine/Amphetamine [Adderall Xr 30 Mg PO SCH (10:00)
[2024-05-14] MEDS: POTASSIUM CHLORIDE ORAL LIQUID 20 MEQ/15 ML PO ONE (10:28)
[2024-05-14] MEDS: CITALOPRAM HYDROBROMIDE 20 MG TABLET PO SCH (10:28)
[2024-05-14] MEDS: PANTOPRAZOLE SODIUM 40 MG VIAL IVPUSH SCH (10:30)
[2024-05-14] MEDS: ONDANSETRON 4 MG/2 ML VIAL IVPUSH ONE (22:03)
[2024-05-15] MEDS: ONDANSETRON 4 MG/2 ML VIAL IVPUSH PRN (09:08)
[2024-05-15] MEDS: PANTOPRAZOLE 40 MG TABLET PO SCH (13:56)
[2024-05-16 08:55] LABS: CHLORIDE 106 mmol/L (98-107); POTASSIUM 4.2 mmol/L (3.5-5.1); SODIUM 138 mmol/L (136-145)
[2024-05-16 08:58] LABS: ANION GAP 4 mmol/L (4-13); CALCIUM 9.1 mg/dL (8.5-10.1); CO2 28 mmol/L (21-32); GLUCOSE,RANDOM 94 mg/dL (74-106)
[2024-05-16 09:02] LABS: BASO % 0.7 % (0-2.0); CREATININE 0.6 mg/dL (0.55-1.3); EOS % 3.2 % (0-4.5); LYMPH % 27.7 % (8-40); MCH 31.6 pg (25.7-33.7); MCHC 33.5 g/dl (32.0-36.0); MEAN CELL VOLUME 94.5 fl (80-96); MEAN PLT VOLUME 7.1 fl (7.5-11.1); MONO % 9.5 % (3.8-10.2); NEUT % 58.9 % (42.8-82.8); PLATELET COUNT 326 10^3/uL (134-434); RBC 3.49 M/mm3 (3.60-5.2); RDW 15.9 % (11.6-15.6)
[2024-05-17 08:15] LABS: SYPHILIS W/ RPR CONF NON-REACTIVE (NONREACTIVE)
[2024-05-17 08:48] LABS: HIV INTERPRETATION NEGATIVE (NEGATIVE)
[2024-05-17] MEDS: PEG 3350/NA SULF BICARB CL/KCL 4000 ML SOLN.RECON PO ONE (18:02)
[2024-05-17] MEDS: ACETAMINOPHEN 1000 MG/100 ML BAG IVPB ONE (23:50)
[2024-05-18] MEDS ORDERED: ACETAMINOPHEN 1000 MG/100 ML BAG IVPB PRN (02:00)
[2024-05-18 08:47] LABS: BASO % 0.6 % (0-2.0); EOS % 3.6 % (0-4.5); HEMATOCRIT 34.4 % (32.4-45.2); HEMOGLOBIN 11.6 GM/dL (10.7-15.3); LYMPH % 26.5 % (8-40); MCH 32.1 pg (25.7-33.7); MCHC 33.8 g/dl (32.0-36.0); MEAN PLT VOLUME 6.9 fl (7.5-11.1); NEUT % 58.3 % (42.8-82.8); PLATELET COUNT 321 10^3/uL (134-434); RBC 3.62 M/mm3 (3.60-5.2); RDW 15.6 % (11.6-15.6)
[2024-05-18 08:59] LABS: POTASSIUM 3.7 mmol/L (3.5-5.1)
[2024-05-18 09:04] LABS: CALCIUM 8.9 mg/dL (8.5-10.1)
[2024-05-18 09:06] LABS: BLOOD UREA NITROGEN 11.3 mg/dL (7-18)
[2024-05-18 09:09] LABS: CREATININE 0.6 mg/dL (0.55-1.3)
[2024-05-18 13:02] VITALS: RESP 20
[2024-05-18 13:31] VITALS: BP 118/74; PULSE 77; TEMP 97.7
== END 2024-05-18 18:04 | disposition home or self-care (01) ==
LOC: JER 12:16 → JERBED 18:24 → J7W 21:59
PROVIDERS: ADMIT Internal Medicine; ATTEND Internal Medicine
PROC: 3E033NZ Introduction of Analgesics, Hypnotics, Sedatives into Peripheral Vein, Percutaneous Approach (ICD-10-PCS; principal; 2024-05-13)
PROC: 3E0337Z Introduction of Electrolytic and Water Balance Substance into Peripheral Vein, Percutaneous Approach (ICD-10-PCS; 2024-05-13)
PROC: 3E033GC Introduction of Other Therapeutic Substance into Peripheral Vein, Percutaneous Approach (ICD-10-PCS; 2024-05-13)
PROC: 0DB98ZX Excision of Duodenum, Via Natural or Artificial Opening Endoscopic, Diagnostic (ICD-10-PCS; 2024-05-14)
PROC: 0DB78ZX Excision of Stomach, Pylorus, Via Natural or Artificial Opening Endoscopic, Diagnostic (ICD-10-PCS; 2024-05-14)
PROC: 0DB68ZX Excision of Stomach, Via Natural or Artificial Opening Endoscopic, Diagnostic (ICD-10-PCS; 2024-05-14)
PROC: 0DBM8ZX Excision of Descending Colon, Via Natural or Artificial Opening Endoscopic, Diagnostic (ICD-10-PCS; 2024-05-18)
PROC: 0DBL8ZX Excision of Transverse Colon, Via Natural or Artificial Opening Endoscopic, Diagnostic (ICD-10-PCS; 2024-05-18)
PROC: 0DBF8ZX Excision of Right Large Intestine, Via Natural or Artificial Opening Endoscopic, Diagnostic (ICD-10-PCS; 2024-05-18)
PROC: 0DBG8ZX Excision of Left Large Intestine, Via Natural or Artificial Opening Endoscopic, Diagnostic (ICD-10-PCS; 2024-05-18)
DX: K29.70 Gastritis, unspecified, without bleeding (principal); K58.9 Irritable bowel syndrome, unspecified; E87.6 Hypokalemia; F90.9 Attention-deficit hyperactivity disorder, unspecified type; F41.8 Other specified anxiety disorders; F17.200 Nicotine dependence, unspecified, uncomplicated
CPT/HCPCS: 36415; 74019-TC-FY; 74177-TC; 80048; 80053; 81003; 83690; 83735; 84100; 84703; 85025; 85027; 85651; 86140; 86780; 86850; 86900; 86901; 87045; 87046; 87205; 87209; 87324; 87389; 87449; 87798; 88305-TC; 88342-TC; 93005; 93010; 99285-25; G0378; Q9967

== ENCOUNTER 2024-06-03 16:13 | Emergency (ER) | payer OTHER ==
[2024-06-03 16:21] VITALS: BP 128/89; PULSE 98; RESP 16; TEMP 98.4; BMI 28.5
[2024-06-03] MEDS ORDERED: KETOROLAC TROMETHAMINE 30 MG/1 ML VIAL ONE (18:20)
[2024-06-03] MEDS ORDERED: ACETAMINOPHEN 500 MG TABLET (FP) ONE (18:20)
[2024-06-03] MEDS: ACETAMINOPHEN 500 MG TABLET (FP) PO ONE (18:28)
[2024-06-03] MEDS: KETOROLAC TROMETHAMINE 30 MG/1 ML VIAL IM ONE (18:28)
== END 2024-06-03 20:25 | disposition home or self-care (01) ==
LOC: JER 16:13
PROC: 3E0133Z Introduction of Anti-inflammatory into Subcutaneous Tissue, Percutaneous Approach (ICD-10-PCS; principal; 2024-06-03)
DX: R07.89 Other chest pain (principal); R11.2 Nausea with vomiting, unspecified; R19.7 Diarrhea, unspecified
CPT/HCPCS: 71046-TC-FY; 93005; 93010; 99284-25

== ENCOUNTER 2024-06-16 17:53 | Emergency (ER) | payer OTHER ==
[2024-06-16 18:09] VITALS: BP 145/95; PULSE 124; RESP 20; TEMP 99.2; BMI 29.1
[2024-06-16] MEDS ORDERED: ALPRAZolam 1 MG TABLET ONE (18:55)
[2024-06-16] MEDS: ALPRAZolam 1 MG TABLET PO PRN (19:01)
[2024-06-16 20:13] LABS: BASO % 0.4 % (0-2.0); EOS % 0.2 % (0-4.5); HEMATOCRIT 37.1 % (32.4-45.2); HEMOGLOBIN 12.6 GM/dL (10.7-15.3); LYMPH % 6.9 % (8-40); MCH 30.8 pg (25.7-33.7); MEAN CELL VOLUME 90.6 fl (80-96); MEAN PLT VOLUME 6.9 fl (7.5-11.1); MONO % 2.2 % (3.8-10.2); NEUT % 90.3 % (42.8-82.8); PLATELET COUNT 412 10^3/uL (134-434); WHITE BLOOD COUNT 11.3 K/mm3 (4.0-10.0)
[2024-06-16 20:14] LABS: PH,URINE 5.5 (5.0-8.0); URINE APPEARANCE CLEAR; URINE BILIRUBIN NEGATIVE (NEGATIVE); URINE COLOR DK YELLOW; URINE GLUCOSE (UA) NEGATIVE (NEGATIVE); URINE KETONE TRACE (NEGATIVE); URINE LEUK ESTERASE NEGATIVE (NEGATIVE); URINE NITRITE NEGATIVE (NEGATIVE); URINE PROTEIN TRACE (NEGATIVE)
[2024-06-16 20:17] LABS: HCG,QUALITATIVE URINE Negative
[2024-06-16 20:23] LABS: INR 0.96 (0.83-1.09); PROTHROMBIN TIME (PATIENT) 11.1 SEC (9.7-13.0)
[2024-06-16 20:23] LABS: OPIATES, URI NEGATIVE (NEGATIVE); URINE BARBITURATES NEGATIVE (NEGATIVE)
[2024-06-16 20:25] LABS: COCAINE, UR NEGATIVE (NEGATIVE); METHADONE, UR NEGATIVE (NEGATIVE); PHENCYCLIDINE,URINE NEGATIVE (NEGATIVE)
[2024-06-16 20:26] LABS: ACTIVATED PTT 32.5 SECONDS (25.2-36.5)
[2024-06-16 20:37] LABS: URINE AMPHETAMINES POSITIVE (NEGATIVE); URINE BENZODIAZEPINES POSITIVE (NEGATIVE)
[2024-06-16 20:48] LABS: POTASSIUM 3.6 mmol/L (3.5-5.1)
[2024-06-16 20:51] LABS: ALBUMIN 4.4 g/dl (3.4-5.0); BLOOD UREA NITROGEN 6.6 mg/dL (7-18); CALCIUM 9.5 mg/dL (8.5-10.1)
[2024-06-16 20:54] LABS: CREATININE 0.8 mg/dL (0.55-1.3)
[2024-06-16 20:55] LABS: BILIRUBIN,TOTAL 1.1 mg/dL (0.2-1); TOT PROT 7.8 g/dl (6.4-8.2)
== END 2024-06-16 20:49 | disposition home or self-care (01) ==
LOC: JER 17:53
DX: S50.12XA Contusion of left forearm, initial encounter (principal); S80.12XA Contusion of left lower leg, initial encounter; S30.0XXA Contusion of lower back and pelvis, initial encounter; S09.90XA Unspecified injury of head, initial encounter; S09.93XA Unspecified injury of face, initial encounter; M54.2 Cervicalgia; F13.930 Sedative, hypnotic or anxiolytic use, unspecified with withdrawal, uncomplicated; W10.8XXA Fall (on) (from) other stairs and steps, initial encounter
CPT/HCPCS: 36415; 70450-TC; 72125-TC; 80053; 80307; 81003; 84703; 85025; 85610; 85730; 99284-25

== ENCOUNTER 2024-09-25 10:09 | Emergency (ER) | payer OTHER ==
[2024-09-25 10:17] VITALS: BP 133/81; PULSE 90; RESP 18; TEMP 98.4; BMI 29.7
[2024-09-25 11:20] LABS: BASO % 0.9 % (0-2.0); EOS % 3.6 % (0-4.5); HEMATOCRIT 38.9 % (32.4-45.2); HEMOGLOBIN 13.4 GM/dL (10.7-15.3); LYMPH % 18.7 % (8-40); MCH 31.6 pg (25.7-33.7); MCHC 34.4 g/dl (32.0-36.0); MEAN CELL VOLUME 91.9 fl (80-96); MONO % 6.8 % (3.8-10.2); PLATELET COUNT 436 10^3/uL (134-434); RBC 4.23 M/mm3 (3.60-5.2); WHITE BLOOD COUNT 8.9 K/mm3 (4.0-10.0)
[2024-09-25] MEDS ORDERED: ONDANSETRON 4 MG/2 ML VIAL ONE (11:34)
[2024-09-25] MEDS ORDERED: MAG HYDROX/AL HYDROX/SIMETH 30 ML UNIT-DOSE CUP ONE (11:34)
[2024-09-25] MEDS ORDERED: FAMOTIDINE 10 MG/ML VIAL IVPB ONE (11:35)
[2024-09-25] MEDS ORDERED: FAMOTIDINE 20 MG/50 ML IVPB 20 MG/50 ML MG IVPB ONE (11:35)
[2024-09-25] MEDS: FAMOTIDINE 20 MG/50 ML IVPB 20 MG/50 ML MG IVPB ONE (11:45)
[2024-09-25] MEDS: ONDANSETRON 4 MG/2 ML VIAL IVPUSH ONE (11:45)
[2024-09-25] MEDS: LACTATED RINGERS SOLUTION 1,000 ML/1,000 ML INFUS.BAG IV STA (11:45)
[2024-09-25] MEDS: MAG HYDROX/AL HYDROX/SIMETH 30 ML UNIT-DOSE CUP PO ONE (11:45)
[2024-09-25 11:53] LABS: CALCIUM 9.4 mg/dL (8.5-10.1)
[2024-09-25 11:54] LABS: ALBUMIN 4.2 g/dl (3.4-5.0); BLOOD UREA NITROGEN 9.8 mg/dL (7-18)
[2024-09-25 11:57] LABS: CREATININE 0.8 mg/dL (0.55-1.3)
[2024-09-25 11:58] LABS: BILIRUBIN,TOTAL 0.5 mg/dL (0.2-1)
[2024-09-25 11:59] LABS: TOT PROT 7.4 g/dl (6.4-8.2)
[2024-09-25] MEDS ORDERED: ACETAMINOPHEN INJECTION 100 ML ONE (12:40)
[2024-09-25] MEDS: ACETAMINOPHEN 1000 MG/100 ML BAG IVPB ONE (12:52)
[2024-09-25 13:43] LABS: EPI CELLS 19 /uL (0-25.1); HYALINE CASTS 0 /uL (0-3.1); PH,URINE 5.5 (5.0-8.0); URINE APPEARANCE CLEAR; URINE BACTERIA 1156 /uL (0-1359); URINE BILIRUBIN NEGATIVE (NEGATIVE); URINE COLOR YELLOW; URINE GLUCOSE (UA) NEGATIVE (NEGATIVE); URINE KETONE NEGATIVE (NEGATIVE); URINE LEUK ESTERASE NEGATIVE (NEGATIVE); URINE NITRITE NEGATIVE (NEGATIVE); URINE PROTEIN NEGATIVE (NEGATIVE); URINE RBC 3 /uL (0-23.9); URINE UROBILINOGEN 0.2 mg/dL (0.2-1.0); URINE WBC 10 /uL (0-25.8)
[2024-09-25 18:48] LABS: HIV INTERPRETATION NEGATIVE (NEGATIVE)
== END 2024-09-25 14:33 | disposition home or self-care (01) ==
LOC: JER 10:09
PROC: 3E033GC Introduction of Other Therapeutic Substance into Peripheral Vein, Percutaneous Approach (ICD-10-PCS; principal; 2024-09-25)
PROC: 3E033GC Introduction of Other Therapeutic Substance into Peripheral Vein, Percutaneous Approach (ICD-10-PCS; 2024-09-25)
PROC: 3E033NZ Introduction of Analgesics, Hypnotics, Sedatives into Peripheral Vein, Percutaneous Approach (ICD-10-PCS; 2024-09-25)
DX: R11.2 Nausea with vomiting, unspecified (principal); R10.12 Left upper quadrant pain; K52.9 Noninfective gastroenteritis and colitis, unspecified
CPT/HCPCS: 36415; 80053; 81003; 83690; 84484; 84703; 85025; 86803; 87086; 87389; 93005; 93010; 99284-25; J0131

== ENCOUNTER 2024-10-12 05:00 | Day surgery (SDC) | payer OTHER ==
[2024-10-07 15:11] VITALS: BMI 29.7
[2024-10-12] MEDS ORDERED: MIDAZOLAM HCL 2 MG/2 ML SINGLE DOSE VIAL ONE (11:08)
[2024-10-12] MEDS ORDERED: PROPOFOL 20 ML ONE (11:08)
[2024-10-12] MEDS ORDERED: ePHEDrine SULFATE 50 MG/1 ML AMPULE ONE (11:23)
[2024-10-12] MEDS ORDERED: ONDANSETRON 4 MG/2 ML VIAL ONE ×2 (11:23→11:49)
[2024-10-12] MEDS ORDERED: DEXAMETHASONE SOD PHOSPHATE 4 MG/1 ML VIAL ONE (11:23)
[2024-10-12] MEDS ORDERED: IBUPROFEN 400 MG TABLET (FP) PO PRN (11:26)
[2024-10-12] MEDS ORDERED: oxyCODONE HCL 5 MG TABLET PO PRN (11:26)
[2024-10-12] MEDS ORDERED: ACETAMINOPHEN 325 MG TABLET (FP) PO PRN (11:26)
[2024-10-12] MEDS ORDERED: ONDANSETRON 4 MG/2 ML VIAL IVPUSH PRN (12:04)
[2024-10-12 13:35] VITALS: BP 110/75; PULSE 77; RESP 18; TEMP 98.2
== END 2024-10-12 13:25 | disposition home or self-care (01) ==
LOC: JASU-SURG 05:00
PROVIDERS: ATTEND Obstetrics & Gynecology
PROC: 0UB98ZZ Excision of Uterus, Via Natural or Artificial Opening Endoscopic (ICD-10-PCS; principal; 2024-10-12 11:00)
DX: D25.0 Submucous leiomyoma of uterus (principal); N85.6 Intrauterine synechiae
CPT/HCPCS: 81025; 88305-TC; 94760

== ENCOUNTER 2025-03-26 10:20 | Emergency (ER) | payer OTHER ==
[2025-03-26 10:34] VITALS: BP 114/88; PULSE 68; RESP 18; TEMP 98.6; BMI 29.0
[2025-03-26] MEDS ORDERED: ACETAMINOPHEN INJECTION 100 ML ONE (12:25)
[2025-03-26] MEDS ORDERED: ONDANSETRON 4 MG/2 ML VIAL ONE ×2 (12:25→18:21)
[2025-03-26] MEDS ORDERED: FAMOTIDINE 20 MG/50 ML IVPB 20 MG/50 ML MG IVPB ONE (12:26)
[2025-03-26 12:38] LABS: ABSOLUTE IMMATURE GRANULOCYTES 0.03 x10^3/uL (0.0-0.031); BASOPHILS # 0.08 x10^3/uL (0.01-0.08); EOSINOPHIL % 5.4 % (0.7-5.8); EOSINOPHILS # 0.54 x10^3/uL (0.04-0.36); HEMOGLOBIN 13.6 g/dL (11.2-15.7); MCHC 33.2 g/dl (32.2-35.5); MEAN CELL VOLUME 93.2 fl (79.4-94.8); MEAN PLT VOLUME 8.8 fl (9.4-12.3); MONOCYTE # 0.75 x10^3/uL (0.24-0.86); MONOCYTE % 7.5 % (4.7-12.5); PLATELET COUNT 433 x10^3/uL (182-369); RDW 14.8 % (12.2-17.1)
[2025-03-26] MEDS: SODIUM CHLORIDE 0.9% 500 ML INFUS.BAG IV ONE ×2 (12:40→16:29)
[2025-03-26] MEDS: ACETAMINOPHEN 1000 MG/100 ML BAG IVPB ONE (12:41)
[2025-03-26] MEDS: FAMOTIDINE 20 MG/50 ML IVPB 20 MG/50 ML MG IVPB ONE (12:43)
[2025-03-26] MEDS: ONDANSETRON 4 MG/2 ML VIAL IVPUSH ONE ×2 (12:43→18:25)
[2025-03-26 13:04] LABS: POTASSIUM 4.3 mmol/L (3.5-5.1)
[2025-03-26 13:06] LABS: ALBUMIN 4.2 g/dl (3.4-5.0); CALCIUM 9.7 mg/dL (8.5-10.1)
[2025-03-26 13:07] LABS: BLOOD UREA NITROGEN 8.7 mg/dL (7-18)
[2025-03-26 13:10] LABS: CREATININE 0.7 mg/dL (0.55-1.3)
[2025-03-26 13:11] LABS: BILIRUBIN,TOTAL 0.4 mg/dL (0.2-1)
[2025-03-26 15:49] LABS: URINE APPEARANCE CLEAR; URINE BILIRUBIN NEGATIVE (NEGATIVE); URINE COLOR YELLOW; URINE GLUCOSE (UA) NEGATIVE (NEGATIVE); URINE KETONE 1+ (NEGATIVE)
[2025-03-26 15:50] LABS: EPI CELLS 14.1 /uL (0-25.1); HYALINE CASTS 1 /uL (0-3.1); URINE BACTERIA 445.9 /uL (0-1359); URINE LEUK ESTERASE NEGATIVE (NEGATIVE); URINE NITRITE NEGATIVE (NEGATIVE); URINE PROTEIN NEGATIVE (NEGATIVE); URINE RBC 17 /uL (0-23.9); URINE UROBILINOGEN 0.2 mg/dL (0.2-1.0); URINE WBC 12.1 /uL (0-25.8)
[2025-03-26] MEDS ORDERED: METOCLOPRAMIDE HCL INJECTION 10 MG/2 ML VIAL ONE (16:14)
[2025-03-26] MEDS: METOCLOPRAMIDE HCL INJECTION 10 MG/2 ML VIAL IVPB ONE (16:29)
[2025-03-26 16:50] LABS: HIV INTERPRETATION NEGATIVE (NEGATIVE)
[2025-03-26 16:51] LABS: HCV DIAGNOSTIC IN-HOUSE W/RFLX NON-REACTIVE (NONREACTIVE)
== END 2025-03-26 19:13 | disposition home or self-care (01) ==
LOC: JER 10:20
PROC: 3E033GC Introduction of Other Therapeutic Substance into Peripheral Vein, Percutaneous Approach (ICD-10-PCS; principal; 2025-03-26)
PROC: 3E033NZ Introduction of Analgesics, Hypnotics, Sedatives into Peripheral Vein, Percutaneous Approach (ICD-10-PCS; 2025-03-26)
PROC: 3E033GC Introduction of Other Therapeutic Substance into Peripheral Vein, Percutaneous Approach (ICD-10-PCS; 2025-03-26)
PROC: 3E033GC Introduction of Other Therapeutic Substance into Peripheral Vein, Percutaneous Approach (ICD-10-PCS; 2025-03-26)
PROC: 3E033GC Introduction of Other Therapeutic Substance into Peripheral Vein, Percutaneous Approach (ICD-10-PCS; 2025-03-26)
DX: K29.00 Acute gastritis without bleeding (principal); R11.2 Nausea with vomiting, unspecified; R10.11 Right upper quadrant pain; R10.13 Epigastric pain
CPT/HCPCS: 36415; 74177-TC; 76700-TC; 80053; 81003; 83690; 84703; 85025; 86803; 87086; 87389; 93005; 93010; 99285-25; J0131; Q9967